=== PATIENT | female | born 1970 | race Caucasian/White ===

== ENCOUNTER 2016-10-01 22:37 | Emergency (ER) | payer BC, OTHER ==
[2016-10-01 23:06] VITALS: BP 120/65; PULSE 55; TEMP 98.2; BMI 26.9
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
== END 2016-10-02 00:08 | disposition home or self-care (01) ==
LOC: JER 22:37
DX: M54.89 Other dorsalgia (principal); V49.49XA Driver injured in collision with other motor vehicles in traffic accident, initial encounter; Y92.488 Other paved roadways as the place of occurrence of the external cause; Y93.89 Activity, other specified; Y99.0 Civilian activity done for income or pay
CPT/HCPCS: 99282-25

== ENCOUNTER 2017-02-11 22:55 | Emergency (ER) | payer BC, OTHER ==
[2017-02-11 23:47] VITALS: BP 117/80; PULSE 90; TEMP 98.4; BMI 23.4
[2017-02-12] MEDS ORDERED: SODIUM CHLORIDE 1,000 ML IV STA ×2 (00:26→03:32)
[2017-02-12] MEDS ORDERED: PANTOPRAZOLE SODIUM 40 MG in SODIUM CHLORIDE 100 ML IVPB ONE (00:26)
[2017-02-12] MEDS ORDERED: morphine CARPU-JECT 4 MG/1 ML DISP.SYRIN IVPUSH ONE (00:26)
[2017-02-12] MEDS ORDERED: ONDANSETRON 4 MG/2 ML VIAL IVPUSH ONE (00:26)
[2017-02-12] MEDS ORDERED: morphine CARPU-JECT 4 MG/1 ML DISP.SYRIN ONE (00:33)
[2017-02-12] MEDS ORDERED: PANTOPRAZOLE SODIUM 100 ML IVPB ONE (00:33)
[2017-02-12] MEDS ORDERED: ONDANSETRON 4 MG/2 ML VIAL ONE (00:34)
[2017-02-12 00:36] LABS: BASOPHIL 0.3 % (0-2.0); EOSINOPHIL 0.1 % (0-4.5); MCH 29.7 pg (25.7-33.7); MCHC 33.3 g/dl (32.0-36.0); MEAN CELL VOLUME 89.1 fl (80-96); MEAN PLT VOLUME 9.6 fl (7.5-11.1); NEUTROPHILS 82.3 % (42.8-82.8); PLATELET COUNT 235 K/MM3 (134-434); RDW 13.6 % (11.6-15.6)
--- NOTE | 2017-02-12 00:50 | PDOC ---
History of Present Illness - General Chief Complaint: Rectal Bleed Stated Complaint: RECTAL BLEED Time Seen by Provider: 02/11/17 23:23 History Source: Patient Exam Limitations: No Limitations - History of Present Illness Travel History: No Initial Comments: 02/12/17 00:40 46yo Female patient w/PmHx: Anemia presents to ED c/o abd pain w/ diarrhea. Patient reports eating a fast food burger on Thursday, developed diarrhea with abd pain. She states symptoms progress with fever and body aches on Thursday. Thursday ongoing diarrhea and by 10pm last night patient experienced 3 bouts of diarrhea "all blood." LNMP: 2014. Timing/Duration: reports: getting worse Quality: reports: moderate Abdominal Pain Onset Location: reports: generalized abdomen Pain Radiation: reports: no radiation Activities at Onset: reports: none Treatment Prior to Arrive: worse with: analgesics, antacids, cold pack, heat, laxative, enema, other Aggravating Factors: worse with: None, Defecation, Eating, Emotional upset, Exertion, [place], Movement, Voiding, Change in position Alleviating Factors: worse with: None, Belching, Shallow Breathing, Defecation, Eating, Holding Breath, Passing Gas, Change in Position, Rest, Voiding, Vomiting Past History - Travel Traveled outside of the country in the last 30 days: No Close contact w/someone who was outside of country & ill: No - Past Medical History Allergies/Adverse Reactions: Allergies Allergy/AdvReac Type Severity Reaction Status Date / Time No Known Allergies Allergy Verified 02/11/17 23:47 Home Medications: Ambulatory Orders Ibuprofen [Motrin -] 600 mg PO TID PRN 02/11/17 Ciprofloxacin [Cipro (Restricted To Id)] 500 mg PO Q12H #28 tablet 02/12/17 Metronidazole [Flagyl -] 500 mg PO BID #28 tablet 02/12/17 Ondansetron [Zofran Odt -] 4 mg SL Q8H PRN #20 od.tablet 02/12/17 Oxycodone HCl/Acetaminophen [Oxycodone-Acetaminophen 5-325] 1 each PO Q6H PRN # 20 tablet MDD 4 TABS 02/12/17 Anemia: Yes Asthma: No Cancer: No Cardiac Disorders: No CVA: No COPD: No CHF: No Dementia: No Diabetes: No GI Disorders: No Disorders: No HTN: No Hypercholesterolemia: No Liver Disease: No Suicide Attempt (Hx): No Seizures: No Thyroid Disease: No - Immunization History Td Vaccination: Yes Immunization Up to Date: Yes - Psycho/Social/Smoking Cessation Hx Anxiety: No Suicidal Ideation: No Smoking Status: No Smoking History: Never smoked Years of Tobacco Use: 0 Have you smoked in the past 12 months: No Number of Cigarettes Smoked Daily: 0 If you are a former smoker, when did you quit?: 1998 Cigars Per Day: 0 Hx Alcohol Use: Yes (SOCIALLY) Drug/Substance Use Hx: No Substance Use Type: Alcohol Hx Substance Use Treatment: No Review of Systems - Review of Systems Able to Perform ROS?: Yes Is the patient limited Mohawk proficient: No Constitutional: Yes: Fever. No: Chills Respiratory: No: Cough, Orthopnea, Shortness of Breath, Stridor, Wheezing, Productive cough Cardiac (ROS): No: Chest Pain, Lightheadedness, Palpitations, Syncope, Chest Tightness ABD/GI: Yes: Diarrhea, Nausea, Abdominal cramping. No: Constipated, Poor Appetite, Poor Fluid Intake, Vomiting : No: Burning, Dysuria, Flank Pain, Hematuria Musculoskeletal: No: Back Pain Integumentary: No: Bruising, Erythema, Flushing, Lesions, Rash, Sweating Neurological: Yes: Headache. No: Seizure, Tingling, Tremors, Weakness All Other Systems: Reviewed and Negative *Physical Exam - Vital Signs Last Vital Signs Temp Pulse Resp BP Pulse Ox 98.4 F 90 16 117/80 99 02/11/17 23:46 02/11/17 23:46 02/11/17 23:46 02/11/17 23:46 02/11/17 23:46 - Physical Exam General Appearance: Yes: Nourished, Appropriately Dressed, Apparent Distress, Mild Distress. No: Moderate Distress, Severe Distress Neck: positive: Trachea midline, Normal Thyroid, Supple. negative: Decreased range of motion, Lymphadenopathy (R), Lymphadenopathy (L) Respiratory/Chest: positive: Lungs Clear, Normal Breath Sounds. negative: Chest Tender, Respiratory Distress, Accessory Muscle Use, Labored Respiration, Rapid RR, Crackles, Rales, Stridor, Wheezing Cardiovascular: positive: Regular Rhythm, Regular Rate Gastrointestinal/Abdominal: positive: Tender, Soft, Increased Bowel Sounds, Distended, Guarding, Tenderness (generalized ). negative: Rebound Musculoskeletal: positive: Normal Inspection. negative: CVA Tenderness, CVA Tenderness (R), CVA Tenderness (L) Extremity: positive: Normal Capillary Refill, Normal Inspection, Normal Range of Motion. negative: Pedal Edema, Swelling, Calf Tenderness, Erythema, Inflammation Integumentary: positive: Normal Color, Dry, Warm. 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, Fully Oriented, Alert, Normal Mood/ Affect, Normal Response, Motor Strength 01/23 ED Treatment Course - LABORATORY CBC & Chemistry Diagram: 02/12/17 00:28 02/12/17 00:24 *DC/Admit/Observation/Transfer Diagnosis at time of Disposition: Colitis - Discharge Dispostion Disposition: HOME Condition at time of disposition: Improved Admit: No - Prescriptions Prescriptions: Ciprofloxacin [Cipro (Restricted To Id)] 500 mg PO Q12H #28 tablet Metronidazole [Flagyl -] 500 mg PO BID #28 tablet Oxycodone HCl/Acetaminophen [Oxycodone-Acetaminophen 5-325] 1 each PO Q6H PRN # 20 tablet MDD 4 TABS PRN Reason: Severe Pain Ondansetron [Zofran Odt -] 4 mg SL Q8H PRN #20 od.tablet PRN Reason: Nausea - Referrals Referrals: Power Willard MD [Primary Care Provider] - Dion Patel MD [Staff Physician] - - Patient Instructions Printed Discharge Instructions: DI for Colitis Additional Instructions: FOLLOW UP WITH DR. PATEL (GASTROENTEROLOGY). CALL TO SCHEDULE APPOINTMENT FOR FURTHER EVALUATION. TAKE MEDICATIONS PRESCRIBED. DO NOT DRIVE, DRINK ALCOHOL , OR OPERATE HEAVY MACHINERY WHILE TAKING OXYCODONE. DRINK PLENTY FLUIDS (WATER) . REST. AVOID SPICY FOODS, GREASY FOODS, ALCOHOL, AND MOTRIN (IBUPROFEN). CIPRO- ANTIBIOTIC FLAGYL- ANTIBIOTIC: TAKE WITH FOOD. ZOFRAN- ANTI-NAUSEA OXYCODONE/APAP- PAIN RETURN IF SYMPTOMS WORSEN OR ANY CONCERNS FOR FURTHER EVALUATION. Print Language: FRENCH - Post Discharge Activity Work/School Note: Back to Work
[2017-02-12 01:11] LABS: ALBUMIN 3.6 g/dl (3.4-5.0); ALK PHOS 71 U/L (45-117); AMYLASE 55 U/L (25-115); ANION GAP 11 (8-16); BILIRUBIN,TOTAL 0.5 mg/dL (0.2-1.0); CO2 29 mmol/L (21-32); CREATININE 0.5 mg/dL (0.55-1.02); GLUCOSE,RANDOM 109 mg/dL (74-106); SGOT/AST 13 U/L (15-37); SGPT/ALT 19 U/L (12-78); TOT PROT 7.1 g/dl (6.4-8.2)
[2017-02-12] MEDS ORDERED: METOCLOPRAMIDE HCL INJECTION 10 MG/2 ML VIAL IVPB ONE (01:41)
[2017-02-12] MEDS ORDERED: METOCLOPRAMIDE HCL INJECTION 10 MG/2 ML VIAL ONE (01:55)
[2017-02-12 02:59] LABS: TROPONIN I < 0.02 ng/ml (0.00-0.05)
[2017-02-12] MEDS ORDERED: METRONIDAZOLE 500 MG PREMIXED 100 ML IVPB ONE ×2 (03:32→03:38)
[2017-02-12] MEDS ORDERED: CIPROFLOXACIN 400 MG/D5W 200 ML IVPB ONE (03:32)
[2017-02-12] MEDS ORDERED: methylPREDNISolone NA SUCC 125 MG/2 ML VIAL IVPB ONE (04:50)
[2017-02-12] MEDS ORDERED: methylPREDNISolone NA SUCC 125 MG/2 ML VIAL ONE (05:19)
== END 2017-02-12 05:31 | disposition home or self-care (01) ==
LOC: JER 22:55
PROC: 3E03329 Introduction of Other Anti-infective into Peripheral Vein, Percutaneous Approach (ICD-10-PCS; principal; 2017-02-11)
PROC: 3E033GC Introduction of Other Therapeutic Substance into Peripheral Vein, Percutaneous Approach (ICD-10-PCS; 2017-02-11)
PROC: 3E033NZ Introduction of Analgesics, Hypnotics, Sedatives into Peripheral Vein, Percutaneous Approach (ICD-10-PCS; 2017-02-11)
PROC: 3E033GC Introduction of Other Therapeutic Substance into Peripheral Vein, Percutaneous Approach (ICD-10-PCS; 2017-02-11)
PROC: 3E0333Z Introduction of Anti-inflammatory into Peripheral Vein, Percutaneous Approach (ICD-10-PCS; 2017-02-11)
PROC: 3E03329 Introduction of Other Anti-infective into Peripheral Vein, Percutaneous Approach (ICD-10-PCS; 2017-02-11)
DX: K52.89 Other specified noninfective gastroenteritis and colitis (principal)
CPT/HCPCS: 36415; 74177-TC; 80053; 82150; 82550; 83690; 84484; 85025; 86850; 86900; 86901; 99283-25

== ENCOUNTER 2018-07-15 16:01 | Emergency (ER) | payer OTHER, BC ==
--- NOTE | 2018-07-15 16:05 | PDOC ---
Rapid Medical Evaluation Chief Complaint: Pain, Acute Time Seen by Provider: 07/15/18 16:02 Medical Evaluation: Allergies Allergy/AdvReac Type Severity Reaction Status Date / Time No Known Allergies Allergy Verified 02/11/17 23:47 07/15/18 16:02 I have performed a brief in person evaluation of this patient. The patient present with a CC of: Right Shoulder Pain Pt was injured yesterday at work. Pertinent PE findings: Lungs Clear Heart RRR MS: Pain upon palpation to the anterior lateral aspect and pain with abduction. Radial pulse present, cap refill less than 2 seonds, sensation intact Psych: Appropriate affect I have ordered the following: Right shoulder x ray The patient will proceed to the [facility] for further evaluation: Discharge Disposition - Diagnosis Shoulder pain, acute Qualifiers: Laterality: right Qualified Code(s): M25.511 - Pain in right shoulder - Referrals - Patient Instructions - Post Discharge Activity
[2018-07-15 16:06] VITALS: BP 148/69; PULSE 66; TEMP 98; BMI 29.2
[2018-07-15] MEDS ORDERED: IBUPROFEN 600 MG TABLET (FP) PO ONE ×2 (16:43→16:47)
--- NOTE | 2018-07-15 16:49 | PDOC ---
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 Pt has worsened pain to the right shoulder and to the right lateral neck. 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 Pt is right hand dominant. Past History - Past Medical History Allergies/Adverse Reactions: Allergies Allergy/AdvReac Type Severity Reaction Status Date / Time No Known Allergies Allergy Verified 07/15/18 16:05 Home Medications: Ambulatory Orders Cyclobenzaprine HCl [Flexeril -] 10 mg PO TID #21 tablet 07/15/18 Ibuprofen 600 mg PO TID PRN #20 tablet 07/15/18 Anemia: Yes Asthma: No Cancer: No Cardiac Disorders: No CVA: No COPD: No CHF: No Dementia: No Diabetes: No GI Disorders: No Disorders: No HTN: No Hypercholesterolemia: No Liver Disease: No Seizures: No Thyroid Disease: No - Immunization History Td Vaccination: Yes Immunization Up to Date: Yes - Suicide/Smoking/Psychosocial Hx Smoking Status: No Smoking History: Never smoked Years of Tobacco Use: 0 Have you smoked in the past 12 months: No Number of Cigarettes Smoked Daily: 0 If you are a former smoker, when did you quit?: 1998 Cigars Per Day: 0 Information on smoking cessation initiated: No Hx Alcohol Use: No Drug/Substance Use Hx: No Substance Use Type: None Hx Substance Use Treatment: No Review of Systems - Review of Systems Able to Perform ROS?: Yes Is the patient limited Turkish proficient: No Musculoskeletal: Yes: Symptoms Reported *Physical Exam - Vital Signs Last Vital Signs Temp Pulse Resp BP Pulse Ox 98.0 F 66 17 148/69 99 07/15/18 16:03 07/15/18 16:03 07/15/18 16:03 07/15/18 16:03 07/15/18 16:03 - Physical Exam General Appearance: Yes: Nourished, Appropriately Dressed, Intoxicated HEENT: positive: GUILLERMO Neck: positive: Supple, Tender lateral (right side shoulder no bony tenderness, limited abduction due to pain, pt has FROM nv intact ). negative: Tender Respiratory/Chest: positive: Lungs Clear, Normal Breath Sounds Cardiovascular: positive: Regular Rhythm, Regular Rate Musculoskeletal: positive: Normal Inspection Extremity: positive: Normal Inspection Procedures - Splinting Progress: 07/15/18 17:16 sling placed right arm Medical Decision Making - Medical Decision Making 07/15/18 17:16 cc: right shoulder injury at work will get xray to r/o dislocation will give ibuprofen now for pain sling placed for comfort dc inst discussed in detail with pt who verbalizes understanding all questions asked and answered at discharge pt placed off duty until cleared by the orthopedist. 07/15/18 17:16 *DC/Admit/Observation/Transfer Diagnosis at time of Disposition: Shoulder pain, acute Qualifiers: Laterality: right Qualified Code(s): M25.511 - Pain in right shoulder - Discharge Dispostion Disposition: HOME Condition at time of disposition: Good - Prescriptions Prescriptions: Cyclobenzaprine HCl [Flexeril -] 10 mg PO TID #21 tablet Ibuprofen 600 mg PO TID PRN #20 tablet PRN Reason: Pain - Referrals Referrals: Jean Carlos Webber MD [Staff Physician] - - Patient Instructions Additional Instructions: apply ice every 2hrs for 20 minutes for the next 2 days take ibuprofen as directed for pain take flexeril for muscle spasm as needed for pain use the sling while awake remove to sleep follow with for follow up no work until cleared by the orthopedist - Post Discharge Activity Forms/Work/School Notes: Back to Work
== END 2018-07-15 16:57 | disposition home or self-care (01) ==
LOC: JERFT 16:01
DX: M25.511 Pain in right shoulder (principal); X50.0XXA Overexertion from strenuous movement or load, initial encounter; Y93.89 Activity, other specified; Y92.89 Other specified places as the place of occurrence of the external cause; Y99.0 Civilian activity done for income or pay
CPT/HCPCS: 73030-TC-RT-FY; 99281-25